=== PATIENT | female | born 1990 | race Caucasian/White ===

== ENCOUNTER → 2019-10-30 15:56 | Outpatient (BNVA) | payer OTHER, SELFPAY | PROVIDERS: Family Provider Nurse Practitioner Family; PCP Family Medicine; Visit Provider Nurse Practitioner Family | DX: R53.83 Other fatigue (principal) | CPT/HCPCS: 80053; 80061; 82306; 82607; 84439; 84443; 84481; 85025 ==

== ENCOUNTER → 2019-11-17 09:15 | Outpatient (BNVA) | payer OTHER, SELFPAY | PROVIDERS: Family Provider Nurse Practitioner Family; PCP Family Medicine; Visit Provider Nurse Practitioner Family | DX: R50.9 Fever, unspecified (principal); J11.1 Influenza due to unidentified influenza virus with other respiratory manifestations | CPT/HCPCS: 87400 ==

== ENCOUNTER → 2019-11-20 09:24 | Outpatient (BNVA) | payer OTHER, SELFPAY | PROVIDERS: Family Provider Nurse Practitioner Family; PCP Family Medicine; Visit Provider Nurse Practitioner Family | DX: R68.89 Other general symptoms and signs (principal) | CPT/HCPCS: 87400 ==

== ENCOUNTER → 2020-03-22 13:11 | Outpatient (BNVA) | payer OTHER, SELFPAY | PROVIDERS: Family Provider Nurse Practitioner Family; PCP Family Medicine; Visit Provider Counselor Professional | DX: F41.1 Generalized anxiety disorder (principal); F33.1 Major depressive disorder, recurrent, moderate | CPT/HCPCS: 90791 ==

== ENCOUNTER → 2020-04-09 14:45 | Outpatient (BNVA) | payer OTHER, SELFPAY | PROVIDERS: Family Provider Nurse Practitioner Family; PCP Family Medicine; Visit Provider Psychiatry & Neurology Psychiatry | DX: F41.1 Generalized anxiety disorder (principal); F33.1 Major depressive disorder, recurrent, moderate | CPT/HCPCS: 99204 ==

== ENCOUNTER 2020-04-26 07:40 | Outpatient (CLI) | payer OTHER, SELFPAY ==
--- NOTE | 2020-04-26 07:47 | US_ITS ---
WS: [id number] THYROID ULTRASOUND HISTORY: ENLARGED THYROID COMPARISON: None available. Right lobe: 5.6 cm x 2.1 cm x 2.0 cm. Volume: 12.2 cm3. Mildly enlarged thyroid lobe. Cyst with nodule in the mid gland. Nodule measures 1.1 x 0.7 x 1.0 cm. There is a small amount of increased vascularity in the peripheral of the nodule. Margins are well-ci rcumscribed. No echogenic focus. Left lobe: 5.2 cm x 1.8 cm x 1.5 cm. Volume: 7.6 cm3. There are several small hypoechoic nodules in the gland. These nodules are predominantly cystic with comet tail artifact suggesting colloid cyst. Isthmus: 0.5 cm. US/US thyroid [id number] IMPRESSION: 1. RIGHT thyroid nodule; mildly suspicious. Due to its size and imaging featur es recommend follow-up ultrasound in one year. 2. Mild RIGHT thyroid enlargement.
== END 2020-04-26 07:41 | disposition home or self-care (01) ==
LOC: RAD 07:40
PROVIDERS: PCP Family Medicine; Visit Provider Nurse Practitioner Family
DX: E04.9 Nontoxic goiter, unspecified (principal); E04.1 Nontoxic single thyroid nodule
CPT/HCPCS: 76536

== ENCOUNTER → 2020-09-11 11:44 | Outpatient (BNVA) | payer OTHER, SELFPAY | PROVIDERS: PCP Family Medicine; Visit Provider Emergency Medicine | DX: Z20.828 Contact with and (suspected) exposure to other viral communicable diseases (principal) | CPT/HCPCS: 87635 ==

== ENCOUNTER → 2020-09-27 10:14 | Outpatient (BNVA) | payer OTHER, SELFPAY | PROVIDERS: PCP Family Medicine; Visit Provider Obstetrics & Gynecology | DX: Z12.4 Encounter for screening for malignant neoplasm of cervix (principal) | CPT/HCPCS: 88175 ==

== ENCOUNTER → 2020-10-13 09:03 | Outpatient (BNVA) | payer OTHER, SELFPAY | PROVIDERS: PCP Family Medicine; Visit Provider Psychiatry & Neurology Psychiatry | DX: F33.1 Major depressive disorder, recurrent, moderate (principal); F41.1 Generalized anxiety disorder | CPT/HCPCS: 99214 ==

== ENCOUNTER → 2021-01-04 11:52 | Outpatient (BNVA) | payer OTHER, SELFPAY | PROVIDERS: PCP Nurse Practitioner Family; Visit Provider Nurse Practitioner Family | DX: J06.9 Acute upper respiratory infection, unspecified (principal); Z20.822 Contact with and (suspected) exposure to COVID-19 | CPT/HCPCS: 87400; 87635 ==

== ENCOUNTER → 2021-02-01 13:38 | Outpatient (BNVA) | payer OTHER, SELFPAY | PROVIDERS: PCP Nurse Practitioner Family; Visit Provider Family Medicine | DX: Z20.822 Contact with and (suspected) exposure to COVID-19 (principal) | CPT/HCPCS: 87635 ==

== ENCOUNTER → 2021-03-14 16:18 | Outpatient (BNVA) | payer OTHER, SELFPAY | PROVIDERS: PCP Nurse Practitioner Family; Visit Provider Nurse Practitioner Family | DX: E04.1 Nontoxic single thyroid nodule (principal); E01.0 Iodine-deficiency related diffuse (endemic) goiter; G25.81 Restless legs syndrome; F41.1 Generalized anxiety disorder; Z13.6 Encounter for screening for cardiovascular disorders | CPT/HCPCS: 80053; 80061; 82306; 82607; 84439; 84443; 85025 ==

== ENCOUNTER → 2021-11-21 10:33 | Outpatient (BNVA) | payer OTHER, SELFPAY | PROVIDERS: PCP Nurse Practitioner Family; Visit Provider Nurse Practitioner Family | DX: R73.9 Hyperglycemia, unspecified (principal); E01.0 Iodine-deficiency related diffuse (endemic) goiter; Z13.6 Encounter for screening for cardiovascular disorders; K21.9 Gastro-esophageal reflux disease without esophagitis; G25.81 Restless legs syndrome | CPT/HCPCS: 80053; 80061; 81003; 83735; 84439; 84443; 86376 ==

== ENCOUNTER → 2022-04-20 09:46 | Outpatient (BNVA) | payer OTHER, SELFPAY | PROVIDERS: PCP Nurse Practitioner Family; Visit Provider Nurse Practitioner Family | DX: Z20.822 Contact with and (suspected) exposure to COVID-19 (principal); J02.9 Acute pharyngitis, unspecified | CPT/HCPCS: 87071; 87426; 87880 ==

== ENCOUNTER → 2022-05-15 17:02 | Outpatient (BNVA) | payer OTHER, SELFPAY | PROVIDERS: PCP Nurse Practitioner Family; Visit Provider Nurse Practitioner Family | DX: E04.1 Nontoxic single thyroid nodule (principal); R73.9 Hyperglycemia, unspecified; Z13.6 Encounter for screening for cardiovascular disorders; K21.9 Gastro-esophageal reflux disease without esophagitis; G47.00 Insomnia, unspecified | CPT/HCPCS: 80053; 80061; 82306; 82607; 83036; 83721; 83735; 84439; 84443; 85025 ==

== ENCOUNTER 2022-06-16 08:14 | Outpatient (CLI) | payer OTHER, SELFPAY ==
--- NOTE | 2022-06-16 08:30 | US_ITS ---
WS: [id number] THYROID ULTRASOUND HISTORY: E04.1 - Nontoxic single thyroid nodule COMPARISON: 04/26/2020 Right lobe: 2.4 cm x 1.9 cm x 5.2 cm (w x ap x l). Volume: 12.1 cm3. Normal size gland. There is a cystic mass with mural nodule in the mid gland. This was previously alyson cribed but has increased in size. The cyst measures 1.3 x 0.6 x 1.1 cm. The solid nodule with mild in creased vascularity measures 0.5 x 0.4 x 0.4 cm. There is a small feeding vessel to this nodule. No a dditional masses. Left lobe: 2.1 cm x 1.6 cm x 5.3 cm (w x ap x l). Volume: 9.2 cm3. Normal size and echotexture. No significant or dominant nodules are present. Isthmus: 0.4 cm. US/US thyroid [id number] IMPRESSION: 1. Ultrasound-guided FNA recommended of the cystic mass with mural nodule RIGH T thyroid. Attempted biopsy of the solid component should be performed. 2. Negative LEFT thyroid lobe.
== END 2022-06-16 08:15 | disposition home or self-care (01) ==
LOC: RAD 08:16
PROVIDERS: PCP Nurse Practitioner Family; Visit Provider Nurse Practitioner Family
DX: E04.1 Nontoxic single thyroid nodule (principal)
CPT/HCPCS: 76536

== ENCOUNTER 2022-07-24 11:58 | Outpatient (CLI) | payer OTHER, SELFPAY ==
--- NOTE | 2022-07-24 13:00 | US_ITS ---
WS: [id number] ULTRASOUND-GUIDED RIGHT THYROID NODULE FNA HISTORY: E04.1 - Nontoxic single thyroid nodule Procedure, risks, and complications were explained to the patient. Consent has been obtained. Comparison: 06/16/2022, 04/26/2020. The skin is cleansed with ChloraPrep and anesthetized with 1% buffered lidocaine. FNA performed with 25 gauge needles. medical technologist is present to fix slides. Note: Thyroid nodule is intramural nodule. These nodules have increased risk for malignancy. This is a very small nodule. If cytology is negative or inconclusive consider surgical removal based upon the ultrasound findings and the increased risk for malignancy. US/US biopsy/FNA thyroid [id number] IMPRESSION: Uncomplicated FNA of a RIGHT thyroid nodule. Final pathology results pending.
== END 2022-07-24 11:59 | disposition home or self-care (01) ==
LOC: RAD 11:59
PROVIDERS: PCP Nurse Practitioner Family; Visit Provider Nurse Practitioner Family
DX: E04.1 Nontoxic single thyroid nodule (principal)
CPT/HCPCS: 10005; 88108

== ENCOUNTER → 2022-11-08 08:10 | Outpatient (BNVA) | payer OTHER, SELFPAY | PROVIDERS: PCP Nurse Practitioner Family; Visit Provider Nurse Practitioner Family | DX: E04.1 Nontoxic single thyroid nodule (principal); Z13.6 Encounter for screening for cardiovascular disorders; R73.9 Hyperglycemia, unspecified | CPT/HCPCS: 80053; 80061; 82607; 83036; 84439; 84443; 85025 ==

== ENCOUNTER → 2023-09-02 16:35 | Outpatient (BNVA) | payer OTHER, SELFPAY | PROVIDERS: PCP Nurse Practitioner Family; Visit Provider Emergency Medicine | DX: J02.9 Acute pharyngitis, unspecified (principal); J02.8 Acute pharyngitis due to other specified organisms | CPT/HCPCS: 87071; 87880 ==

== ENCOUNTER → 2023-10-31 14:22 | Outpatient (BNVA) | payer BC, SELFPAY | PROVIDERS: PCP Nurse Practitioner Family; Visit Provider Nurse Practitioner Family | DX: M47.896 Other spondylosis, lumbar region (principal); M54.50 Low back pain, unspecified | CPT/HCPCS: 72100 ==

== ENCOUNTER → 2023-11-13 15:33 | Outpatient (BNVA) | payer BC, SELFPAY | PROVIDERS: PCP Nurse Practitioner Family; Visit Provider Nurse Practitioner Family | DX: R23.2 Flushing (principal) | CPT/HCPCS: 80053; 84443; 85025 ==

== ENCOUNTER → 2024-06-16 08:07 | Outpatient (BNVA) | payer BC, SELFPAY | PROVIDERS: PCP Nurse Practitioner; Visit Provider Nurse Practitioner | DX: E04.1 Nontoxic single thyroid nodule (principal) | CPT/HCPCS: 84439; 84443; 84481; 86800 ==

== ENCOUNTER → 2024-11-06 09:47 | Outpatient (BNVA) | payer BC, SELFPAY | PROVIDERS: PCP Nurse Practitioner; Visit Provider Nurse Practitioner | DX: E04.1 Nontoxic single thyroid nodule (principal); E55.9 Vitamin D deficiency, unspecified; R61 Generalized hyperhidrosis | CPT/HCPCS: 80053; 82306; 82607; 84443; 85025; 85651; 86140 ==

== ENCOUNTER 2025-06-26 12:47 | Outpatient (CLI) | payer BC, SELFPAY ==
--- NOTE | 2025-06-26 13:30 | US_ITS ---
WS: [id number] THYROID ULTRASOUND HISTORY: E04.1 - Nontoxic single thyroid nodule COMPARISON: 06/16/2022 Right lobe: 1.8 cm x 1.6 cm x 4.5 cm (w x ap x l). Volume: 6.0 cm3. Normal sized thyroid. Reidentified is the hypoechoic nodule in the mid LEFT thyroid. This nodule has decreased in size since the prior study. There is less cystic component. Nodule now measures 0.6 x 0.3 x 0.7 cm. Left lobe: 1.7 cm x 1.7 cm x 4.5 cm (w x ap x l). Volume: 6.2 cm3. Normal sized gland with a few scattered colloid cysts. Largest measures 0.5 x 0.4 x 0.7 cm in the lower pole. Isthmus: 0.4 cm. US/US thyroid [id number] IMPRESSION: 1. TI-RADS 3; mildly suspicious bilateral nodules. No biopsy recommended or fo llow-up recommended as per TI-RADS criteria. For TI-RADS 3 nodules greater than or equal to 1.5 cm ultrasound follow-up recommended at 1, 3 and 5 years. For n odules less than 1.5 cm no follow-up necessary.
== END 2025-06-26 12:48 | disposition home or self-care (01) ==
LOC: RAD 12:48
PROVIDERS: PCP Nurse Practitioner; Visit Provider Nurse Practitioner
DX: E04.2 Nontoxic multinodular goiter (principal)
CPT/HCPCS: 76536